=== PATIENT | male | born 1985 | race Caucasian/White ===

== ENCOUNTER 2021-11-14 20:51 | Outpatient (REF) | payer MEDICAID, SELFPAY ==
[2021-11-20 05:32] LABS: Cocaine Negative ng/mL (Cutoff: 50)
== END 2021-11-14 20:52 | disposition home or self-care (01) ==
LOC: NCHCN 20:51
PROVIDERS: Visit Provider Nurse Practitioner Family
DX: Z87.898 Personal history of other specified conditions (principal)
CPT/HCPCS: 80353

== ENCOUNTER 2021-12-11 16:25 | Outpatient (REF) | payer MEDICAID, SELFPAY ==
[2021-12-17 11:48] LABS: Amphetamine Negative ng/mL (Cutoff: 25); Amphetamines Interpretation Negative.; MDA (Ecstasy Metabolite) Negative ng/mL (Cutoff: 25); MDMA (Ecstasy) Negative ng/mL (Cutoff: 25); Methamphetamine Negative ng/mL (Cutoff: 25); Phentermine Negative ng/mL (Cutoff: 25); Pseudoephedrine/Ephedrine Negative ng/mL (Cutoff: 25)
[2021-12-26 09:16] LABS: Amphetamine None Detected
== END 2021-12-11 16:26 | disposition home or self-care (01) ==
LOC: NCHCN 16:25
PROVIDERS: Visit Provider Nurse Practitioner Family
DX: F90.9 Attention-deficit hyperactivity disorder, unspecified type (principal)
CPT/HCPCS: 80324

== ENCOUNTER 2022-02-05 17:01 | Outpatient (REF) | payer MEDICAID, SELFPAY ==
[2022-02-12 10:20] LABS: Amphetamine 270 ng/mL (Cutoff: 25); Amphetamines Interpretation Positive.; MDA (Ecstasy Metabolite) Negative ng/mL (Cutoff: 25); MDMA (Ecstasy) Negative ng/mL (Cutoff: 25); Methamphetamine Negative ng/mL (Cutoff: 25); Phentermine Negative ng/mL (Cutoff: 25); Pseudoephedrine/Ephedrine Negative ng/mL (Cutoff: 25)
== END 2022-02-05 17:02 | disposition home or self-care (01) ==
LOC: NCHCN 17:01
PROVIDERS: Visit Provider Nurse Practitioner Family
DX: F90.8 Attention-deficit hyperactivity disorder, other type (principal); Z79.899 Other long term (current) drug therapy
CPT/HCPCS: 80324